=== PATIENT | male | born 1965 | race Caucasian/White ===

== ENCOUNTER → 2017-08-04 | Day surgery (SDC) | payer OTHER ==
[~2017-08-04] MED LIST: ACETAMINOPHEN 1000 MG/100 ML 100 ML IV ONE; ASPI81 PO; BUPIVACAINE LIPOSOME PF 1.3% 20 ML VIAL ONE; KETOROLAC TROMETHAMINE 30 MG/ML (IVP) VIAL IV PUSH ONE; LACTATED RINGER'S 1000 ML INJ 1,000 ML ONE; MEPERIDINE HCL 25 MG/ML VIAL ONE; MIDAZOLAM HCL 2 MG/2 ML VIAL ONE; ONDANSETRON HCL 4 MG/2 ML VIAL IV PUSH ONE; PROPOFOL 200 MG/20 ML AMP IV ONE; SODIUM CHLORIDE 0.9% 20 ML VIAL ONE; ceFAZolin 2 GM PREMIX 50 ML ONE
--- NOTE | 2017-08-07 08:10 | MP ---
cc: RICO HANSON DATE OF SURGERY 08/04/2017 PREOPERATIVE DIAGNOSIS Right inguinal hernia. POSTOPERATIVE DIAGNOSIS Right inguinal hernia. PROCEDURE Repair of right inguinal hernia with ProGrip mesh. SURGEON MD Liam ANESTHESIA General. OPERATIVE FINDINGS The patient was found to have extremely large indirect hernia sac which was densely adherent to the surrounding tissue. It had grossly disrupted the internal ring as well as most of the inguinal floor. There is no evidence of incarcerated viscera. No other abnormalities were noted. OPERATIVE PROCEDURE The patient was brought to the operating room and after satisfactory general anesthesia had been obtained, the abdomen was prepped and draped in the usual sterile fashion. Using 1.3% Exparel, local anesthesia was infiltrated in the skin and a transverse right inguinal incision was made, then carried down sharply through the subcutaneous tissue with the cautery being used for hemostasis. The incision was deepened in the external oblique fascia which was grossly splayed out due to the hernia underneath. The fascia was incised in the direction of its fibers down to and through the external ring to the area of the pubis. The underside of the fascia was cleaned and then the hernia sac and spermatic cord were dissected free as much as possible. The hernia sac was seen to be quite large but did not extend into the scrotal sac. The hernia sac was dissected free from the cord structures after opening it partially to allow finger dissection from within it. The sac was then dissected down to the internal ring where it was circumferentially scored to allow reduction into the properitoneal space which was accomplished after closing the defect with running 3-0 Vicryl suture. After reduction of the sac within the internal ring into the properitoneal space, the spermatic cord was cleaned of all adventitial tissue. The inguinal floor was then closed by bringing the internal oblique fascia and muscle into close approximation with the shelving edge of the inguinal ligament using interrupted 0 Vicryl suture. After closing the entire inguinal floor and recreating the internal ring, the repair was checked and found to be intact in all areas with the appropriate-sized internal ring. A piece of ProGrip mesh was cut to the appropriate shape and then was secured anterior to the repair by pressing its posterior Vicryl hooks into the surrounding tissue to achieve wide coverage over the repair. The mesh was then affixed to the pubis with single 0 Prolene suture. Hemostasis was checked for and found to be satisfactory. The testicle was returned to its [place] location by gentle traction. The external oblique was closed as much as possible with a running 3-0 Vicryl suture. The area was further infiltrated with the 1.3% Exparel for a total of 20 mL. The subcutaneous tissue was closed with interrupted 3-0 Vicryl suture and the skin closed with interrupted 4-0 PDS subcuticular stitches. Steri-Strips were applied and the patient was then awakened and taken from the operating room, in satisfactory condition, having tolerated the procedure without problem. Estimated blood loss was less than 10 mL. The instrument, sponge and needle counts were reported as being correct x2 at the end of procedure. MD KATIE Levine/PIA /11:02 AM /8:00 AM
== END | disposition home or self-care (01) ==
LOC: ESDC 08:02
PROVIDERS: ATTEND Surgery
DX: K40.90 Unilateral inguinal hernia, without obstruction or gangrene, not specified as recurrent (principal)
CPT/HCPCS: 00830; 49505; C1781; C9290; J0131; J0690; J1885; J2175; J2250; J2405; J3010; J7120